=== PATIENT | female | born 1990 | race Caucasian/White ===

== ENCOUNTER 2023-07-26 21:44 | Emergency (ER) | payer OTHER ==
[2023-07-26 21:55] VITALS: BP 124/66; PULSE 80; RESP 18; TEMP 98.7; BMI 32.2
[2023-07-26] MEDS: SODIUM CHLORIDE FOR INHALATION 3 ML VIAL.NEB IH ONE (22:52)
== END 2023-07-27 00:02 | disposition home or self-care (01) ==
LOC: JER 21:44
DX: R06.02 Shortness of breath (principal); R07.9 Chest pain, unspecified; Z20.822 Contact with and (suspected) exposure to COVID-19
CPT/HCPCS: 0241U-QW; 71046-TC-FY; 99284-25

== ENCOUNTER 2024-01-11 08:24 | Inpatient (IN) | payer OTHER ==
[2024-01-11] MEDS: CITRIC ACID/SODIUM CITRATE 30 ML UNIT-DOSE CUP PO ONE (09:30)
[2024-01-11 09:36] LABS: BASO % 0.8 % (0-2.0); EOS % 1.3 % (0-4.5); HEMOGLOBIN 13.9 GM/dL (10.7-15.3); LYMPH % 32.9 % (8-40); MCH 29.5 pg (25.7-33.7); MCHC 34.6 g/dl (32.0-36.0); MEAN CELL VOLUME 85.1 fl (80-96); MEAN PLT VOLUME 9.6 fl (7.5-11.1); MONO % 6.3 % (3.8-10.2); NEUT % 58.7 % (42.8-82.8); PLATELET COUNT 233 10^3/uL (134-434); RBC 4.71 M/mm3 (3.60-5.2); RDW 13.9 % (11.6-15.6)
[2024-01-11 09:38] LABS: INR 0.92 (0.83-1.09); PROTHROMBIN TIME (PATIENT) 10.4 SEC (9.7-13.0)
[2024-01-11 09:46] LABS: POTASSIUM 3.9 mmol/L (3.5-5.1)
[2024-01-11 09:48] VITALS: BMI 34.5
[2024-01-11 09:49] LABS: CALCIUM 9.2 mg/dL (8.5-10.1)
[2024-01-11 09:51] LABS: BLOOD UREA NITROGEN 10.1 mg/dL (7-18); CREATININE 0.4 mg/dL (0.55-1.3)
[2024-01-11] MEDS ORDERED: OXYTOCIN 30 UNITS in 0.9% NS 30 UNIT/500 ML INFUS.BAG IVPB ONE (10:07)
[2024-01-11] MEDS ORDERED: ONDANSETRON 4 MG/2 ML VIAL ONE (10:08)
[2024-01-11] MEDS ORDERED: METOCLOPRAMIDE HCL INJECTION 10 MG/2 ML VIAL ONE (10:08)
[2024-01-11] MEDS ORDERED: morphine SULFATE/PF 1 MG/2 ML (2cc Syringe - QUVA) ONE (10:08)
[2024-01-11] MEDS ORDERED: ceFAZolin SODIUM 1 GM VIAL ONE (10:08)
[2024-01-11] MEDS ORDERED: PHENYLEPHRINE HCL 10 MG/1 ML SINGLE DOSE VIAL ONE (10:08)
[2024-01-11] MEDS ORDERED: FENTANYL CITRATE/PF 50 MCG/ML VIAL ONE (10:08)
[2024-01-11] MEDS ORDERED: ELECTROLYTE-148 SOLN 1,000 ML IV SCH (10:15)
[2024-01-11] MEDS: ELECTROLYTE-148 SOLN 1,000 ML IV SCH (11:06)
[2024-01-11] MEDS ORDERED: TRANEXAMIC ACID 1000 MG/10 ML VIAL ONE (11:51)
[2024-01-11 11:58] LABS: CORD BASE EXCESS -3.7 mmol/L (0-2); CORD HCO3 24.4 mmHg (20-29); CORD pH 7.265 (7.14-7.44)
[2024-01-11 11:59] LABS: CORD HCO3 26.8 mmHg (20-29); CORD PCO2 74.8 mmHg (30-78); CORD pH 7.172 (7.14-7.44)
[2024-01-11] MEDS ORDERED: BENZOCAINE 20% 57 GM BOTTLE TP PRN (12:22)
[2024-01-11] MEDS ORDERED: BISACODYL 10 MG SUPP.RECT RC PRN (12:22)
[2024-01-11] MEDS ORDERED: BENZOCAINE 28 GM HEMORRHOIDAL OINTMENT TP PRN (12:22)
[2024-01-11] MEDS ORDERED: WITCH HAZEL 50% (TUCKS) 40 PAD/JAR PAD TP PRN (12:22)
[2024-01-11] MEDS ORDERED: KETOROLAC TROMETHAMINE 30 MG/1 ML VIAL ONE (12:31)
[2024-01-11] MEDS: OXYTOCIN 20 UNITS in 0.9% NS 20 UNIT/1,000 ML INFUS.BAG IV SCH (12:40)
[2024-01-11] MEDS ORDERED: ONDANSETRON 4 MG/2 ML VIAL IVPUSH PRN (13:01)
[2024-01-11] MEDS: METHYLERGONOVINE MALEATE 0.2 MG/1 ML AMP IM PRN (13:50)
[2024-01-11 14:54] VITALS: RESP 18
[2024-01-11] MEDS: CEFAZOLIN 2 GM/D5W 2 GM/50 ML ML IVPB SCH (18:23)
[2024-01-11] MEDS ORDERED: IBUPROFEN 800 MG/8 ML IJ IVPB PRN (18:39)
[2024-01-12] MEDS: ACETAMINOPHEN 1000 MG/100 ML BAG IVPB PRN (05:51)
[2024-01-12 07:32] LABS: BASO % 0.2 % (0-2.0); EOS % 0.9 % (0-4.5); HEMATOCRIT 34.3 % (32.4-45.2); HEMOGLOBIN 11.5 GM/dL (10.7-15.3); LYMPH % 25.3 % (8-40); MCHC 33.5 g/dl (32.0-36.0); MEAN CELL VOLUME 86.5 fl (80-96); MEAN PLT VOLUME 9.2 fl (7.5-11.1); NEUT % 65.6 % (42.8-82.8); PLATELET COUNT 208 10^3/uL (134-434); RBC 3.97 M/mm3 (3.60-5.2); RDW 13.5 % (11.6-15.6); WHITE BLOOD COUNT 7.8 K/mm3 (4.0-10.0)
[2024-01-12] MEDS: morphine SULFATE/PF 1 MG/2 ML (2cc Syringe - QUVA) IT ONE (07:37)
[2024-01-12] MEDS: ENOXAPARIN NA (PORCINE) 40 MG/0.4 ML DISP.SYRIN SQ SCH (10:18)
[2024-01-12] MEDS: PRENATAL VITAMINS W/ FOLIC ACID TABLET (FP) PO SCH (10:19)
[2024-01-12] MEDS: IBUPROFEN 600 MG TABLET (FP) PO PRN (13:02)
[2024-01-12] MEDS: SENNOSIDES/DOCUSATE COMBO (SENNA PLUS) TABLET (UD) PO PRN (21:23)
[2024-01-12] MEDS: ACETAMINOPHEN 325 MG TABLET (FP) PO PRN (21:24)
[2024-01-12] MEDS: oxyCODONE HCL 5 MG TABLET PO PRN (22:56)
[2024-01-14 09:23] VITALS: BP 119/70; PULSE 90; TEMP 98.2
== END 2024-01-14 15:15 | disposition home or self-care (01) | DRG 540 ==
LOC: JLDR 08:24 → J3W 15:10
PROVIDERS: ADMIT Obstetrics & Gynecology; ATTEND Obstetrics & Gynecology
PROC: 10D00Z1 Extraction of Products of Conception, Low, Open Approach (ICD-10-PCS; principal; 2024-01-11)
DX: O34.211 Maternal care for low transverse scar from previous cesarean delivery (principal); N85.8 Other specified noninflammatory disorders of uterus; O99.214 Obesity complicating childbirth; O24.420 Gestational diabetes mellitus in childbirth, diet controlled; Z3A.38 38 weeks gestation of pregnancy; Z37.0 Single live birth
CPT/HCPCS: 36415; 36600; 59409; 80048; 82803; 82962; 85025; 85610; 85730; 86780; 86850; 86900; 86901; 88307-TC; J0131